=== PATIENT | female | born 1955 | race Caucasian/White ===

== ENCOUNTER 2019-05-04 09:25 | Day surgery (SDC) ==
--- NOTE | 2019-05-01 13:55 | EKG Report ---
Test Performed on : 05/01/2019 1:21:29 PM Test Reason : pat Blood Pressure : / mmHG Vent. Rate : 067 BPM Atrial Rate : 067 BPM P-R Int : 198 ms QRS Dur : 102 ms QT Int : 372 ms P-R-T Axes : 055 -19 065 degrees QTc Int : 393 ms Normal sinus rhythm. Normal ECG When compared with ECG of 06-JAN-2017 18:16, premature ventricular complexes. are no longer present QT has shortened Confirmed by Echo Nelson MD ([id number]) on 05/01/2019 4:12:04 PM
[2019-05-01 14:00] LABS: HEMATOCRIT 46.5 % (37.0-47.0); HEMOGLOBIN 15.2 g/dL (12.0-16.0); MCH 31.1 PG (27-31); MCHC 32.7 g/dL (33-37); MCV 95.3 FL (81-99); MPV 9.7 FL (7.4-10.4); RBC 4.88 XMIL (4.2-5.4); RDW 12.9 % (11.5-14.5); WBC 7.76 X1000 (4.8-10.8)
[2019-05-01 14:33] LABS: AGAP 12; BUN 20 mg/dL (8-22); CHLORIDE 102 mmol/L (98-107); COSMO 282; CREATININE 0.6 mg/dL (0.5-0.9); ESTIMATED GFR > 60; GLUCOSE 105 mg/dL (70-104); POTASSIUM 4.7 mmol/L (3.5-5.1); SODIUM 140 mmol/L (136-145); TCO2 26 mmol/L (25-35)
[2019-05-04] MEDS ORDERED: REGLAN ONE (09:50)
[2019-05-04] MEDS ORDERED: TRANSDERM-SCOP ONE (09:50)
[2019-05-04] MEDS ORDERED: PEPCID ONE (09:50)
[2019-05-04] MEDS ORDERED: KEFZOL 1 GM/D5W 2 GM/100 ML IVPB ONE (09:51)
[2019-05-04] MEDS ORDERED: LR 1,000 ML ONE ×2 (09:51→16:20)
[2019-05-04] MEDS ORDERED: DIPRIVAN 1% ONE (10:57)
[2019-05-04] MEDS ORDERED: XYLOCAINE-MPF 2% ONE (10:58)
--- NOTE | 2019-05-04 11:07 | Diag Imaging Result Doc PS360 ---
EXAM: LYMPHOSCINTIGRAPHY W/IMG HISTORY: malignant neoplasm left breast TECHNIQUE: Nuclear medicine lymphoscintigraphy imaging COMPARISON: None. FINDINGS: 570 uCi technetium lymphocytic administered. Imaging over the neck and chest performed. No definite area of increased activity within the left breast or axilla. Faint activity on the [place] projection may be an artifact. This area is not seen on any other image. Electronically signed by Mo Norman 05/04/2019 11:04 AM
[2019-05-04] MEDS ORDERED: VERSED ONE (12:15)
[2019-05-04] MEDS ORDERED: METHYLENE BLUE 0.5% ONE (12:27)
[2019-05-04] MEDS ORDERED: SENSORCAINE-MPF 0.5%/EPI 1:200,000 ONE (12:27)
[2019-05-04] MEDS ORDERED: SODIUM CHLORIDE 0.9% ONE (12:28)
[2019-05-04] MEDS ORDERED: DILAUDID ONE (13:08)
[2019-05-04] MEDS ORDERED: ZOFRAN ONE (13:09)
[2019-05-04] MEDS ORDERED: DECADRON ONE (13:09)
[2019-05-04] MEDS: DILAUDID ONE ×3 (15:49→16:05)
[2019-05-04] MEDS ORDERED: MORPHINE IV PRN (18:00)
[2019-05-04] MEDS ORDERED: LR 1,000 ML IV SCH (18:00)
--- NOTE | 2019-05-04 18:58 | OPERATIVE NOTE ---
PROCEDURE DATE: 05/04/2019 PREOPERATIVE DIAGNOSIS: Metastatic left breast cancer. POSTOPERATIVE DIAGNOSIS: Metastatic left breast cancer. PROCEDURE: 1. Right mastectomy. 2. Left mastectomy. 3. Injection of methylene blue into the left breast. 4. [place] lymph node mapping, left breast. 5. [place] lymph node biopsy, left axilla. SURGEON: Alejandro Zuleta MD. NUCLEAR SPECTROSCOPIST: None. ANESTHESIA: General endotracheal. OPERATIVE FINDINGS: Intramammary lymph node that was found to have methylene blue was positive, but the sentinel lymph node in the axilla was negative. COMPLICATIONS: None at the time of dictation. ESTIMATED BLOOD LOSS: 200 mL. SPECIMEN REMOVED: Bilateral breasts, both marked single stitch medial, double stitch superior, sentinel lymph nodes #1 and 2. DRAINS: 4 flat drains. BRIEF HISTORY: 63-year-old female who had biopsy-proven metastatic breast cancer to her left acromion. We had done a biopsy in the office. This is a breast cancer from the left side. It was felt that she would benefit from bilateral mastectomies and sentinel lymph node mapping. The risks, benefits, and alternatives were discussed. All questions answered. DESCRIPTION OF PROCEDURE: After informed consent was obtained, the patient was brought to the operative theatre and placed in supine position. General endotracheal anesthesia was then performed without complication. A formal time-out was then performed, confirming patient, date, and procedure. All were in agreement. At that time, attention was given to the right side. It should be noted that we did inject methylene blue on the left side and massaged the breast for a complete 5 minutes. It should also be noted that she did get injected in her left breast in Nuclear Medicine. We prepped and draped the breast in a standard fashion. We then turned our attention to the right breast. We made a standard mastectomy incision on the right side to incorporate the whole breast tissue. We dissected the breast off, going superiorly to the 2nd intercostal space, medially to the sternum, inferiorly to inframammary fold and axillary area, and laterally to the axillary contents. We removed the breast off the pectoralis muscle and then closed it after placing 2 drains. We maintained hemostasis with electrocautery. We closed it in layers using 3-0 Vicryl and 4-0 Monocryl. We then turned our attention to the left side. We made a standard elliptical mastectomy incision and carried it all way down to the pectoralis muscle superiorly to the 2nd intercostal space, medially to the sternum, inferiorly to the inframammary fold, and laterally to the axilla. When we were getting into the axilla, we noticed an inframammary lymph node, which we sent off. It did take up some methylene blue. It was positive. We then examined the axilla. We did a sentinel lymph node biopsy in the axilla and found 1 lymph node which was negative. There were no other palpable lymph nodes. I had a discussion at this time over the phone with Dr. Moy, the patient's oncologist, and we elected to not do a full axillary node dissection because she was going to get radiation to the left shoulder anyway, and she was likely going to receive chemotherapy. Therefore, we elected to likely extend the radiation field to the left axilla and limit the morbidity associated with the dissection. We then closed this after placing the drains in a standard fashion. The patient tolerated the procedure well. cc: Alejandro Zuleta MD
[2019-05-04] MEDS ORDERED: TYLENOL PM PO SCH (21:00)
[2019-05-04] MEDS: PERIDEX MT SCH (22:48)
[2019-05-04] MEDS: WELLBUTRIN SR PO SCH (22:48)
[2019-05-04] MEDS: VOLTAREN PO SCH ×2 (22:48→23:33)
[2019-05-04] MEDS ORDERED: FEMARA PO SCH (23:15)
[2019-05-05] MEDS: ZOFRAN IV PRN ×2 (03:01→09:32)
[2019-05-05] MEDS: NORCO-10 PO PRN ×2 (03:01→09:32)
--- NOTE | 2019-05-05 06:05 | GENERAL SURGERY PROGRESS NOTE ---
DATE: 05/05/2019 SUBJECTIVE: Patient seems to be doing well. No major issues. OBJECTIVE: Vital signs: Patient is currently afebrile. Her vital signs are stable. GARRISON drain is in place with serosanguineous output. General: No acute distress. Cardiovascular: Regular rate and rhythm. Lungs: Grossly clear. Chest wall incisions viewed, no obvious hematoma. GARRISON drains with serosanguineous output. ASSESSMENT/PLAN: A 63-year-old female, currently postoperative day #1 from bilateral mastectomy. Postoperative state. At this time, patient is doing well. I think she can be discharged home today. cc: Alejandro Zuleta MD
[2019-05-05 07:38] VITALS: BP 112/97
[2019-05-05] MEDS ORDERED: NORVASC PO SCH (09:00)
[2019-05-05] MEDS: WELLBUTRIN SR PO SCH (09:15)
[2019-05-05] MEDS: VOLTAREN PO SCH (09:15)
[2019-05-05] MEDS: PERIDEX MT SCH (09:15)
== END 2019-05-05 10:25 | disposition home or self-care (01) ==
LOC: 4N 09:25 → OPS 09:25 → PAT 09:25 → OPS 05-05 10:25
PROVIDERS: ATTEND Surgery
PROC: GE.BXSN (2019-05-04 12:37)